=== PATIENT | female | born 1985 | race Hispanic/Latino ===

== ENCOUNTER 2020-11-21 14:39 | Emergency (ER) | payer SELFPAY ==
[2020-11-21 14:52] VITALS: BP 140/86
--- NOTE | 2020-11-21 15:13 | Emergency Department Report ---
ED HPI - General Chief complaint: Vaginal Bleeding Stated complaint: 7WKS BLEEDING Time Seen by Provider: 11/21/20 14:50 Source: patient Mode of arrival: Ambulatory Limitations: No Limitations - History of Present Illness Initial comments: 35-year-old female presents to the ER today with complaints of vaginal bleeding during . Patient states that she is about 7 weeks . She states that she saw her STATE HISTORICAL SOCIETY DIRECTOR last week Wednesday and had an ultrasound confirming an intrauterine . She states that at that time the only saw a sac. Patient states that about 1:00 this afternoon, she started with vaginal bleeding. She describes it as bright red blood, similar to when she would start her period. She states that she did not have time to use a pad or panty liner tampon, because she came straight here. She also reports that 4 days prior to that she did notice brown discharge after when she would wipe after urinating. She denies any associated pelvic or lower abdominal cramping. She does admit that she did have sexual intercourse with her this morning. She is G4, P3 Ab0. Her STATE HISTORICAL SOCIETY DIRECTOR is Dr. Hurtado. Complaint: vaginal bleeding -: Sudden, This afternoon - Related Data Previous Rx's Medication Instructions Recorded Last Taken Type Clotrimazole 1% [Lotrimin 1%] 1 applic TP BID #1 tube 10/01/14 Unknown Rx Fluconazole (Nf) [Diflucan] 200 mg PO QDAY #3 bottle 10/21/14 Unknown Rx Sulfamethoxazole/Trimethoprim 1 each PO BID #14 tablet 10/21/14 Unknown Rx [Bactrim DS TAB] Tolnaftate 30 gm TP BID #30 gram 10/21/14 Unknown Rx Allergies Allergy/AdvReac Type Severity Reaction Status Date / Time Penicillins Allergy Unknown Verified 11/21/20 14:50 ED Review of Systems ROS: Stated complaint: 7WKS BLEEDING Other details as noted in HPI Comment: All other systems reviewed and negative Constitutional: denies: chills, fever Eyes: denies: eye pain, eye discharge, vision change ENT: denies: ear pain, throat pain Respiratory: denies: cough, shortness of breath, SOB with exertion, SOB at rest, wheezing Cardiovascular: denies: chest pain, palpitations, dyspnea on exertion, edema, syncope, paroxysmal nocturnal dyspnea Gastrointestinal: denies: abdominal pain, nausea, vomiting, diarrhea, constipation, hematemesis, melena, hematochezia Genitourinary: discharge (Brown discharge), other (Abnormal vaginal bleeding). denies: urgency, dysuria, frequency, hematuria, abnormal menses Musculoskeletal: denies: back pain, joint swelling, arthralgia Skin: denies: rash, lesions, change in color, change in hair/nails, pruritus Neurological: denies: headache, weakness, numbness, paresthesias, confusion, abnormal gait, vertigo Psychiatric: denies: anxiety, depression, auditory hallucinations, visual collins llucinations, homicidal thoughts, suicidal thoughts Hematological/Lymphatic: denies: easy bleeding, easy bruising, swollen glands ED Past Medical Hx - Past Medical History Hx Hypertension: No Hx Congestive Heart Failure: No Hx Diabetes: No Hx Deep Vein Thrombosis: No Hx Renal Disease: No Hx Sickle Cell Disease: No Hx Seizures: No Hx Asthma: No Hx COPD: No Hx HIV: No Additional medical history: Skin rash - Social History Smoking Status: Never Smoker Substance Use Type: None - Medications Home Medications: Home Medications Medication Instructions Recorded Confirmed Last Taken Type Clotrimazole 1% [Lotrimin 1%] 1 applic TP BID #1 tube 10/01/14 10/21/14 Unknown Rx Fluconazole (Nf) [Diflucan] 200 mg PO QDAY #3 bottle 10/21/14 Unknown Rx Sulfamethoxazole/Trimethoprim 1 each PO BID #14 tablet 10/21/14 Unknown Rx [Bactrim DS TAB] Tolnaftate 30 gm TP BID #30 gram 10/21/14 Unknown Rx ED Physical Exam - General Limitations: No Limitations General appearance: alert, in no apparent distress - Head Head exam: Present: atraumatic, normocephalic, normal inspection - Eye Eye exam: Present: normal appearance, PERRL, EOMI Pupils: Present: normal accommodation - Neck Neck exam: Present: normal inspection, full ROM - Respiratory Respiratory exam: Present: normal lung sounds bilaterally. Absent: respiratory distress, wheezes, rales, rhonchi - Cardiovascular Cardiovascular Exam: Present: regular rate, normal rhythm, normal heart sounds - GI/Abdominal GI/Abdominal exam: Present: soft. Absent: tenderness, guarding, rebound, rigid - Neurological Exam Neurological exam: Present: alert, oriented X3, CN II-XII intact, normal gait - Psychiatric Psychiatric exam: Present: normal affect, normal mood - Skin Skin exam: Present: intact ED Course Vital Signs 11/21/20 11/21/20 14:46 14:51 Temperature 98.4 F Pulse Rate 93 H Respiratory 20 Rate Blood Pressure 140/86 [Right] O2 Sat by Pulse 95 Oximetry ED Medical Decision Making - Lab Data Result diagrams: 11/21/20 15:25 11/21/20 15:25 - Radiology Data Radiology results: report reviewed Patient: DAVIN HERNADEZ MR#: [id number] : 1985 Acct:[id number] Age/Sex: 35 / F ADM Date: 11/21/20 Loc: ED Attending Dr: Ordering Physician: ASHOK DUPONT Date of Service: 11/21/20 Procedure(s): US OB transvaginal Accession Number(s): [id number] cc: ASHOK DUPONT ULTRASOUND OBSTETRIC INDICATION / CLINICAL INFORMATION: 7 weeks /vag bleeding. TECHNIQUE: Transvaginal. COMPARISON: None available. FINDINGS: GESTATIONAL SAC: Well-defined oval shape and intrauterine in location. YOLK SAC: No significant abnormality. EMBRYO/FETUS: No significant abnormality. - [place]-Rump Length = 1.25 cm = 7.3 weeks.days - Heart Rate, beats per minute (if present) = 150 ADNEXA: No significant abnormality. FREE FLUID: None. ADDITIONAL FINDINGS: There is a possible small fibroid measuring 2.9 cm in the lower uterine segment posteriorly. IMPRESSION: 1. Single, living intrauterine with estimated sonographic age of 7.3 weeks.days. Signer Name: Eladio Solares MD Signed: 11/21/2020 5:53 PM Workstation Name: [id number] Transcribed By: YANET Dictated By: Eladio Solares MD Electronically Authenticated By: Eladio Solares MD Signed Date/Time: 11/21/201752 DD/ 51 TD/TT: Critical care attestation.: If time is entered above; I have spent that time in minutes in the direct care of this critically ill patient, excluding procedure time. ED Disposition Clinical Impression: Threatened miscarriage, Uterine fibroid Disposition: 01 HOME / SELF CARE / HOMELESS Is pt being admited?: No Does the pt Need Aspirin: No Condition: Stable Instructions: Uterine Fibroids, Threatened Miscarriage, [id number] Additional Instructions: I recommend no sexual intercourse or strenuous activity until follow-up with your STATE HISTORICAL SOCIETY DIRECTOR. You can take Tylenol as needed for pain. Return to the ER if your symptoms changes or worsens in any way. Referrals: PRIMARY CARE, [Primary Care Provider] - 3-5 Days Forms: Work/School Release Form(ED) Time of Disposition: 18:57 Print Language: YORUBA
[2020-11-21 15:49] LABS: Basophils # (Auto) 0.2 K/mm3 (0.0-0.1); Basophils % (Auto) 1.4 % (0.0-1.8); Eosinophils # (Auto) 0.2 K/mm3 (0.0-0.4); Eosinophils % (Auto) 1.5 % (0.0-4.3); Hemoglobin 13.5 gm/dl (10.1-14.3); Lymphocytes % (Auto) 25.8 % (13.4-35.0); Mean Corpuscular HGB Conc 34 % (30-34); Mean Corpuscular Volume 80 fl (79-97); Monocytes # (Auto) 0.8 K/mm3 (0.0-0.8); Monocytes % (Auto) 5.4 % (0.0-7.3); Platelet Count 316 K/mm3 (140-440); Red Cell Distribution Width 15.2 % (13.2-15.2)
[2020-11-21 16:23] LABS: Alanine Aminotransferase 17 units/L (7-56); Albumin 3.9 g/dL (3.9-5); Blood Urea Nitrogen 11 mg/dL (7-17); Calcium 9.9 mg/dL (8.4-10.2); Hemolysis Index 10
[2020-11-21 16:27] LABS: BUN/Creatinine Ratio 28
--- NOTE | 2020-11-21 17:58 | Ultrasound Report ---
ULTRASOUND OBSTETRIC INDICATION / CLINICAL INFORMATION: 7 weeks /vag bleeding. TECHNIQUE: Transvaginal. COMPARISON: None available. FINDINGS: GESTATIONAL SAC: Well-defined oval shape and intrauterine in location. YOLK SAC: No significant abnormality. EMBRYO/FETUS: No significant abnormality. - [place]-Rump Length = 1.25 cm = 7.3 weeks.days - Heart Rate, beats per minute (if present) = 150 ADNEXA: No significant abnormality. FREE FLUID: None. ADDITIONAL FINDINGS: There is a possible small fibroid measuring 2.9 cm in the lower uterine segment posteriorly. IMPRESSION: 1. Single, living intrauterine with estimated sonographic age of 7.3 weeks.days. Signer Name: Eladio Solares MD Signed: 11/21/2020 5:53 PM Workstation Name: [id number]
[2020-11-21 18:57] LABS: Bilirubin,Urine NEG (Negative); Blood,Urine LG (Negative); Color,Urine Yellow (Yellow); Mucus,Urine FEW /HPF; Protein,Urine <15 mg/dL mg/dL (Negative); Urobilinogen,Urine < 2.0 mg/dL (<2.0)
== END 2020-11-21 19:03 | disposition home or self-care (01) ==
LOC: ED 14:39
DX: O20.0 Threatened abortion (principal); O26.891 Other specified pregnancy related conditions, first trimester; D25.9 Leiomyoma of uterus, unspecified; Z3A.01 Less than 8 weeks gestation of pregnancy; Z88.0 Allergy status to penicillin; Z79.899 Other long term (current) drug therapy
CPT/HCPCS: 36415; 76817; 80053; 81001; 83690; 84702; 85025; 86900; 86901; 99284

== ENCOUNTER 2020-11-24 19:42 | Emergency (ER) | payer BC ==
[2020-11-24] MEDS ORDERED: ACETAMINOPHEN 500 MG TAB PO ONE (21:14)
--- NOTE | 2020-11-24 21:52 | Emergency Department Report ---
ED Female HPI - General Chief complaint: Vaginal Bleeding Stated complaint: 8WKS /BLEEDING/BLOOD CLOTS Source: patient Mode of arrival: Ambulatory Limitations: No Limitations - History of Present Illness Initial comments: Patient is a A0 35 yo female who is approximately 8 weeks gestation and who presented to the ED with complaint of acute onset persistent pelvic pain and vaginal bleeding for the last 5 days, and which has worsened in the last 6 hours. Patient states that she noticed that her bleeding has been heavier with large blood clots and that the pelvic pain is also worsened. 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 Patient denies fever, chills, diarrhea, nausea and vomiting, dysuria, urinary frequency and urgency, vaginal discharge, low back pain, shortness of breath, dizziness, syncope, chest pain or sore throat and headache. MD Complaint: vaginal bleeding, pelvic pain -: Sudden, days(s) (5) Location: suprapubic, other (Vaginal) Radiation: non-radiating Severity: severe Severity scale (0 -10): 7 Quality: cramping, sharp Consistency: constant Improves with: none Worsens with: none Are you Now?: Yes (Approximately 8 weeks gestation) Associated Symptoms: denies other symptoms, vaginal bleeding, abdominal pain (Suprapubic pain), loss of appetite. denies: vaginal discharge, nausea/vomiting, fever/chills, headaches, dysuria, hematuria, rash, seizure, shortness of breath, syncope, weakness - Related Data Sexually active: Yes : 4 Para: 3 A: 0 Previous Rx's Medication Instructions Recorded Last Taken Type Clotrimazole 1% [Lotrimin 1%] 1 applic TP BID #1 tube 10/01/14 Unknown Rx Fluconazole (Nf) [Diflucan] 200 mg PO QDAY #3 bottle 10/21/14 Unknown Rx Sulfamethoxazole/Trimethoprim 1 each PO BID #14 tablet 10/21/14 Unknown Rx [Bactrim DS TAB] Tolnaftate 30 gm TP BID #30 gram 10/21/14 Unknown Rx Allergies Allergy/AdvReac Type Severity Reaction Status Date / Time Penicillins Allergy Unknown Verified 11/21/20 14:50 ED Review of Systems ROS: Stated complaint: 8WKS /BLEEDING/BLOOD CLOTS Other details as noted in HPI Constitutional: denies: chills, fever Eyes: denies: eye pain, eye discharge, vision change ENT: denies: ear pain, throat pain Respiratory: denies: cough, shortness of breath, wheezing Cardiovascular: denies: chest pain, palpitations Endocrine: no symptoms reported Gastrointestinal: abdominal pain (Suprapubic pain). denies: nausea, diarrhea Genitourinary: abnormal menses (Heavy vaginal bleeding). denies: urgency, dysuria, discharge Musculoskeletal: denies: back pain, joint swelling, arthralgia Skin: denies: rash, lesions Neurological: denies: headache, weakness, paresthesias Psychiatric: denies: anxiety, depression Hematological/Lymphatic: denies: easy bleeding, easy bruising ED Past Medical Hx - Past Medical History Hx Hypertension: No Hx Congestive Heart Failure: No Hx Diabetes: No Hx Deep Vein Thrombosis: No Hx Renal Disease: No Hx Sickle Cell Disease: No Hx Seizures: No Hx Asthma: No Hx COPD: No Hx HIV: No Additional medical history: Skin rash - Social History Smoking Status: Current Some Day Smoker Substance Use Type: None - Medications Home Medications: Home Medications Medication Instructions Recorded Confirmed Last Taken Type Clotrimazole 1% [Lotrimin 1%] 1 applic TP BID #1 tube 10/01/14 10/21/14 Unknown Rx Fluconazole (Nf) [Diflucan] 200 mg PO QDAY #3 bottle 10/21/14 Unknown Rx Sulfamethoxazole/Trimethoprim 1 each PO BID #14 tablet 10/21/14 Unknown Rx [Bactrim DS TAB] Tolnaftate 30 gm TP BID #30 gram 10/21/14 Unknown Rx ED Physical Exam - General Limitations: No Limitations General appearance: alert, in no apparent distress - Head Head exam: Present: atraumatic, normocephalic, normal inspection - Eye Eye exam: Present: normal appearance, PERRL, EOMI Pupils: Present: normal accommodation - ENT ENT exam: Present: normal exam, normal orophraynx, mucous membranes moist, TM's normal bilaterally, normal external ear exam - Neck Neck exam: Present: normal inspection, full ROM - Respiratory Respiratory exam: Present: normal lung sounds bilaterally. Absent: respiratory distress, wheezes, rales, rhonchi, chest wall tenderness, accessory muscle use, decreased breath sounds - Cardiovascular Cardiovascular Exam: Present: regular rate, normal rhythm, normal heart sounds. Absent: systolic murmur, diastolic murmur, rubs, gallop - GI/Abdominal GI/Abdominal exam: Present: soft, tenderness (Palpable diffuse lower abdominal tenderness), normal bowel sounds. Absent: distended, guarding, rebound, hyperactive bowel sounds, hypoactive bowel sounds, organomegaly - Bi-manual exam: Present: other (Pelvic exam deferred at this time) - Extremities Exam Extremities exam: Present: normal inspection, full ROM, normal capillary refill - Back Exam Back exam: Present: normal inspection, full ROM. Absent: tenderness, CVA tenderness (R), CVA tenderness (L), muscle spasm, paraspinal tenderness, vertebral tenderness - Neurological Exam Neurological exam: Present: alert, oriented X3, CN II-XII intact, normal gait, reflexes normal - Psychiatric Psychiatric exam: Present: normal affect, normal mood - Skin Skin exam: Present: warm, dry, intact, normal color. Absent: rash ED Course Vital Signs 11/24/20 21:12 Temperature 98.3 F Pulse Rate 90 Respiratory 22 Rate Blood Pressure 123/90 O2 Sat by Pulse 98 Oximetry ED Medical Decision Making - Lab Data Result diagrams: 11/24/20 22:02 11/24/20 22:02 - Radiology Data Radiology results: report reviewed, image reviewed - Medical Decision Making This is a A0 35 yo female who is approximately 8 weeks gestation and who presented to the ED with complaint of acute onset persistent pelvic pain and vaginal bleeding for the last 5 days, and which has worsened in the last 6 hours. Patient states that she noticed that her bleeding has been heavier with large blood clots and that the pelvic pain is also worsened. 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 In the ED, patient is alert and oriented x3 and is not in any distress with normal vital signs. Patient was treated for pain with Tylenol. Lab test results were reviewed and showed hCG quant of 12,500, which compared to the previous 72-hours ago when the [place]CG quant was [id number]. Th the patient had complained of heavy vaginal bleeding with large blood clots prior to arrival in the ED. The significant reduction in hCG quant is consistent with a threatened miscarriage or suspected demise. Patient was therefore discharged home on bedrest and advised to avoid heavy l ifting or any physical and strenuous activities including sexual intercourse, and to follow-up with [employer] COUNSEL physician within 48 hours for serial hCG quant studies repeat to confirm demise. Patient is advised return to the ED immediately if symptoms get worse. At the time of the patient's discharge from the ED, patient pain was well controlled medications, patient ambulating in the ED with no difficulty and was hemodynamically stable. - Differential Diagnosis Threatened miscarriage; ovarian cyst; subchorionic bleed; UTI; Critical care attestation.: If time is entered above; I have spent that time in minutes in the direct care of this critically ill patient, excluding procedure time. ED Disposition Clinical Impression: Threatened miscarriage, Vaginal bleeding in patient after first trimester, Pelvic pain during in first trimester, antepartum, Threatened miscarriage in early Disposition: 01 HOME / SELF CARE / HOMELESS Is pt being admited?: No Does the pt Need Aspirin: No Condition: Stable Instructions: Pelvic Pain, Female, [id number], Threatened Miscarriage, Vaginal Bleeding During , First Trimester, [id number] Additional Instructions: Lab test results were reviewed and shows significant decrease in hCG quant consistent with miscarriage. Therefore maintain a complete pelvic rest devoid of heavy lifting or physical and strenuous activities including sexual intercourse, and take Tylenol as needed for pain. Follow-up with the [employer] HOU[employer] COUN[employer] physician Dr. Yusuf in 48 hours for serial hCG quant recheck. Return to the ED immediately if symptoms get worse. Referrals: HOLLIE YUSUF MD [Staff Physician] - 2-3 Days Time of Disposition: 00:34 Print Language: [id number]
[2020-11-24 22:30] LABS: Hematocrit 39.1 % (30.3-42.9); Hemoglobin 13.1 gm/dl (10.1-14.3); Mean Corpuscular HGB Conc 34 % (30-34); Mean Corpuscular Volume 81 fl (79-97); Platelet Count 322 K/mm3 (140-440); Red Cell Distribution Width 15.5 % (13.2-15.2)
[2020-11-24 22:57] LABS: Alanine Aminotransferase 16 units/L (7-56); Blood Urea Nitrogen 16 mg/dL (7-17); Calcium 9.9 mg/dL (8.4-10.2); Hemolysis Index 1
[2020-11-24 23:06] LABS: Total Cells Counted 100
[2020-11-24 23:07] LABS: Platelet Estimate Consistent w Auto; RBC Morphology Normal
[2020-11-24 23:24] LABS: BUN/Creatinine Ratio 27
[2020-11-25 01:29] VITALS: BP 122/83
== END 2020-11-25 01:29 | disposition home or self-care (01) ==
LOC: ED 19:42
DX: O20.0 Threatened abortion (principal); O20.9 Hemorrhage in early pregnancy, unspecified; R10.2 Pelvic and perineal pain; Z3A.08 8 weeks gestation of pregnancy; R21 Rash and other nonspecific skin eruption; F17.200 Nicotine dependence, unspecified, uncomplicated; Z88.0 Allergy status to penicillin
CPT/HCPCS: 36415; 80053; 84702; 85007; 85025; 99283